=== PATIENT | male | born 1950 | race Caucasian/White ===

== ENCOUNTER 2023-09-11 09:30 | Emergency (ER) | payer MEDICARE, OTHER, SELFPAY ==
[2023-09-11 09:36] VITALS: BP 120/71
--- NOTE | 2023-09-11 10:34 | ED.SKININJ ---
HPI-Injury
<Mya Prather FOOD STAND MANAGER - Last Filed: 09/11/23 18:34>
General
Chief Complaint: Ear Problem
Source: patient and spouse
Exam Limitations: none
Time Seen by Provider: 09/11/23 10:06
Nursing documentation reviewed up to this point in time: agreed with
Travel History
Have you had any contact with someone who has COVID-19?: No
Do you have any symptoms of coronavirus? Fever > 100 degrees, chills, cough, shortness of breath, sore throat, loss of taste or smell, muscle aches, or headache?: No
History of Present Illness-Injury
Initial Injury comments:
72 yo male with muffled hearing and irritation right ear, no pain. Saw [facility] ER 10 days ago and given Ofloxacin 3% ear drops. States he felt improvement for about 5 days but then started with pressure, 'distortion of sound' in the ear.
States pain is gone. Denies fever, sore throat, headache, neck pain.
He is on 3rd month of 6 of Cefuroxime for prophylactic UTI treatment
Past History
<Mya Prather FOOD STAND MANAGER - Last Filed: 09/11/23 18:34>
Past History
ED Past Medical History: Other (macular degeneration); Negative Asthma, HTN, Hypercholesterolemia or NIDDM
ED Past Surgical History: Tonsilectomy (adnoids) and Urological (Tumor removed from right kidney)
Social History
Tobacco: Non-smoker
Alcohol: Occasional
Drug: None
Personal:
Living: with family
Review of Systems
<Mya Prather FOOD STAND MANAGER - Last Filed: 09/11/23 18:34>
Review of Systems
Allergies reviewed?: Yes
All Other Systems: ROS reviewed and negative except as documented in HPI and ROS
Constitutional: Denies fever
EENT: Reports other (right ear muffles sounds and pressure, denies pain)
ABD/GI: Denies nausea
Musculoskeletal: Denies neck pain
Skin: Reports no symptoms
Neurological: Denies dizzy or headache
Phy Exam
<Mya Prather FOOD STAND MANAGER - Last Filed: 09/11/23 18:34>
Physical Exam
Physical Exam:
GENERAL: No acute distress. A&Ox3.
CONSTITUTIONAL: Afebrile.
EYES: clear, conjunctivae normal
Neck: Supple, no lymphadenopathy
ENMT: moist mucus membranes, Pharynx nl, Left ear TM normal. R ear with debris, mild swelling, TM is partially obstructed with debris, not red. No pain with exam.
RESPIRATORY: Regular respirations, nonlabored, lungs clear.
CARDIOVASCULAR: Regular rate and rhythm, no murmurs, no rubs.
MUSCULOSKELETAL: Moves with ease. Well perfused.
SKIN: Warm, dry, pink
PSYCH: Normal mood and affect. Well kept, interactive and appropriate
NEUROLOGIC: Awake, alert and oriented. No focal neurological deficits
Course
<Mya Prather, FOOD STAND MANAGER - Last Filed: 09/11/23 18:34>
Orders/Labs/Results
Orders:
Orders
09/11/23 10:38
Neomycin/Polymyxin/Hc [Cortisporin Otic Suspension] See Dose Instructions OTIC NOW STA
Vital Signs
Initial and Last Documented VS:
Initial Vital Signs
Temp Pulse Resp BP Pulse Ox
98.2 F 83 16 120/71 95
09/11/23 09:36 09/11/23 09:36 09/11/23 09:36 09/11/23 09:36 09/11/23 09:36
Last Documented Vital Signs
Temp Pulse Resp BP Pulse Ox
98.2 F 83 16 120/71 95
09/11/23 09:36 09/11/23 09:36 09/11/23 09:36 09/11/23 09:36 09/11/23 09:36
<Inocente Hernandez, DO - Last Filed: 09/11/23 11:09>
Orders/Labs/Results
Orders:
Orders
09/11/23 10:38
Neomycin/Polymyxin/Hc [Cortisporin Otic Suspension] See Dose Instructions OTIC NOW STA
Vital Signs
Initial and Last Documented VS:
Initial Vital Signs
Temp Pulse Resp BP Pulse Ox
98.2 F 83 16 120/71 95
09/11/23 09:36 09/11/23 09:36 09/11/23 09:36 09/11/23 09:36 09/11/23 09:36
Last Documented Vital Signs
Temp Pulse Resp BP Pulse Ox
98.2 F 83 16 120/71 95
09/11/23 09:36 09/11/23 09:36 09/11/23 09:36 09/11/23 09:36 09/11/23 09:36
<Mya Prather NP - Last Filed: 09/11/23 18:34>
MDM/Problems Addressed
Differential Diagnosis Includes:
otitis externa, otitis media, malignant otitis externa
MDM/Problems Addressed:
72 yo male with muffled hearing and irritation right ear, no pain. Saw [facility] ER 10 days ago and given Ofloxacin 3% ear drops. States he felt improvement for about 5 days but then started with pressure, 'distortion of sound' in the ear.
States pain is gone. Denies fever, sore throat, headache, neck pain.
He is on 3rd month of 6 of Cefuroxime for prophylactic UTI treatment
Afebrile, NAD
Attempted to get Cipro with steroid drops but we only have Neomycin Polymixin with Hydrocortisone drops so these were given to patient, instructed to use TID and continue the Cipro drops once daily
Inserted earwick and first dose of drops
Referred to ENT as needed.
Dr. Hernandez evaluated pt and agrees with assessment and plan
<Mya V. Day, FOOD STAND MANAGER - Last Filed: 09/11/23 18:34>
*Critical Care Note
Total Time (30-74mins, 75-104mins- exclusive of procedures): Not Applicable
ED Attending Note
<Mya Prather, FOOD STAND MANAGER - Last Filed: 09/11/23 18:34>
-
Portions of this chart may have been created with voice recognition software.� Occasional wrong word or��sound alike� substitutions may have occurred due to the inherent limitations of voice recognition software.
<Inocente Hernandez, DO - Last Filed: 09/11/23 11:09>
ED Attending Note
Patient seen and examined by attending physician: Yes
I performed the substantive portion of visit, reviewed & personally made and approve the management plan that is documented in note by myself or JESSICA.: Yes
ED Attending Note:
I have seen and evaluated the patient with a [id number] encounter. I have spoken to the advance practicer provider and involved in the medical history, the physical exam, medical decision making.
Evaluation and management service: agree unless noted differently below.
Results interpretation: agree unless noted differently below.
Focused HPI: 72-year-old male presenting with right ear pain. He is on ofloxacin. Symptoms or not improved
Physical exam: Patient does have evidence of otitis externa. TM clear
Medical Decision Making: Will place ear wick and start on eardrops with steroids. Discussed return precautions
Discharge Plan
Departure
Patient Disposition: Home (Routine Discharge)
Date of Disposition: 09/11/23
Time of Disposition: 10:51
Patient with high blood pressure during this ER visit?: No
Condition: Good
Discharge Problem:
Acute Otitis Externa
Instructions: Outer Ear Infection (DC)
Prescriptions:
No Action
pantoprazole 40 MG tablet,delayed release (DR/EC)
40 mg PO BID
acetaminophen 325 MG tablet
650 mg PO Q6HPRN PRN (Reason: mild pain/ fever>100.5F) 0RF
metronidazole 500 MG tablet
500 mg PO Q8 Qty: 30 0RF
levofloxacin 500 MG tablet
500 mg PO DAILY Qty: 10 0RF
cefuroxime axetil 500 mg tablet
500 mg PO BID Qty: 14 0RF
Referrals:
Rafa Peter MD [Family Provider] -
Jason Simmons MD [Active] - Follow up in 5-7 days
Activity Restrictions/Additional Instructions:
As we discussed, leave this earwick in for 2-3 days, then remove it.
Continue the Ofloxacin drops 4 drops in ear 4 times a day and apply the Neomycin/Polymyxin/Hydrocortisone drops 3 times a day for 10 days.
Tylenol or Ibuprofen as needed for pain.
See the ENT doctor if not significantly improved within 5 days.
Return here immediately for fever above 100.5, increasing pain in the ear/jaw or feeling worse in any way
Interventions
Interventions:
*Risk Screen - Suicide Last Done: 09/11/23 09:36
*General Assessment Last Done: 09/11/23 09:36
*Neglect/Abuse Screening Last Done: 09/11/23 11:09
*Nursing Disposition Last Done: 09/11/23 11:09
Discharge Date and Time
Discharge Date/Time: 09/11/23 11:09
Print Language: ICELANDIC
[2023-09-11] MEDS: CORTISPORIN OTIC SUSPENSION 1 DROP OTIC (11:00)
== END 2023-09-11 11:09 | disposition home or self-care (01) ==
LOC: EMR 09:30
PROVIDERS: EMERGENCY PHYSICIAN Student in an Organized Health Care Education/Training Program; FAMILY PHYSICIAN Internal Medicine
DX: H60.501 Unspecified acute noninfective otitis externa, right ear (principal)
CPT/HCPCS: 99282

== ENCOUNTER 2024-07-23 07:18 | Emergency (ER) | payer MEDICARE, OTHER, SELFPAY ==
[2024-07-23] VITALS (7 sets, daily range): BP systolic 138–153; BP diastolic 71–94; BMI 32.8
[2024-07-23 08:01] LABS: % Basophils 0.4 % (0-2); % Eosinophils 4.9 % (0-6); % Immature Granulocytes 1.4 % (0-0.5); % Lymphocytes 28.8 % (20.5-51.1); % Monocytes 7.3 % (1.7-9.3); % Neutrophils 57.2 % (42.2-75.2); Absolute Eosinophils 0.2 10^3/uL (0-0.7); Absolute Immature Granulocytes 0.1 10^3/uL (0-0.05); Absolute Lymphocytes 1.4 10^3/uL (1.2-3.4); Absolute Monocytes 0.4 10^3/uL (0.1-0.6); Absolute Neutrophils 2.8 10^3/uL (1.4-6.5); Hematocrit 43.6 % (39.0-52.0); Hemoglobin 14.8 g/dL (13.0-18.0); Mean Corp Hgb Conc. 33.9 g/dL (33.0-37.0); Mean Corpuscular Volume 88.4 fL (80.0-94.0); Mean Platelet Volume 9.9 fL (7.4-10.4); Nucleated Red Blood Cells % 0 % (-); Platelet Count 146 10^3/uL (130-400); Red Blood Cell Count 4.93 10^6/uL (4.70-6.10); Red Cell Dist. Width 13.7 % (11.5-14.5); White Blood Cell Count 4.9 10^3/uL (4.8-10.8)
[2024-07-23 08:14] LABS: ALT (SGPT) 24 U/L (0-50); AST (SGOT) 20 U/L (17-59); Albumin 4.1 g/dl (3.5-5.0); Alkaline Phosphatase 48 U/L (38-126); Blood Urea Nitrogen 16 mg/dl (9-20); Calcium 9.4 mg/dl (8.4-10.2); Carbon Dioxide 26 mmol/L (22-30); Chloride 105 mmol/L (98-107); Estimated Creatinine Clearance 88 ml/min; Glucose 126 mg/dl (70-99); Lipase 202 U/L (23-300); Potassium 4.2 mmol/L (3.5-5.1); Sodium 138 mmol/L (135-145); Total Bilirubin 0.5 mg/dl (0.2-1.3); Total Protein 6.8 g/dl (6.3-8.2); eGFR > 60.00
--- NOTE | 2024-07-23 08:14 | ED.GENMED ---
History of Present Illness
<Sheyla Higgins PA-C - Last Filed: 07/24/24 09:31>
General
Chief Complaint: Chest Pain
Source: patient
Exam Limitations: none
Time Seen by Provider: 07/23/24 07:28
Nursing documentation reviewed up to this point in time: agreed with
History of Present Illness
History of Present Illness:
pt is a 73 y/o M
h/o renal cell carcinoma s/p resection R tumor 2021
no chemo/radiation
no CAD history
here with rhtyhmic like chest cramp/ache since 3 pm yesterday
comes every 1-1.5 minutes and lasts briefly before going away
he felt it all day yesterday but then was able to sleep at midnight til 5 am
wok eup to use the bathroom and felt it again
no associated sob, nausea, vomiting, diarphoresis, lightheadedness
it does not feel like extra beat/skipped beat
no pleuritic component
he did travel on a cruise ship recently; flew to [place] first and then on the cruise around [facility]
no h/o DVT/PE
nonsmoker
no hld, htn, dm
Past History
<Sheyla Higgins PA-C - Last Filed: 07/24/24 09:31>
Past History
ED Past Medical History: Other (macular degeneration); Negative Asthma, HTN, Hypercholesterolemia or NIDDM
ED Past Surgical History: Tonsilectomy (adnoids) and Urological (Tumor removed from right kidney)
Social History
Tobacco: Non-smoker
Alcohol: Occasional
Drug: None
Personal:
Living: with family
Review of Systems
<Sheyla Higgins PA-C - Last Filed: 07/24/24 09:31>
Review of Systems
Allergies reviewed?: Yes
All Other Systems: Not applicable
Phy Exam
<Sheyla Higgins PA-C - Last Filed: 07/24/24 09:31>
Physical Exam
Physical Exam:
GENERAL: Alert , in no apparent distress, well appearing
EYE: pupils equal and reactive
NECK: Supple
ENT: o/p clr, mmm.
CARDIAC: Regular rate and rhythm .
LUNGS: Clear breath sounds bilaterally, no acute respiratory distress, no wheezes/rales/rhonchi
chest wall: nontender, no rash
ABDOMEN: Soft, without focal tenderness, no r/g, no cvat, normal bowel sounds
NEUROLOGICAL: Alert and oriented, no focal neuro deficits
SKIN: Warm and dry, skin intact.
MUSCULOSKELETAL: No edema, well perfused. neg thu's sign
PSYCH: Normal and appropriate interaction.
Course
<Sheyla Higgins PA-C - Last Filed: 07/24/24 09:31>
Orders/Labs/Results
Orders:
Orders
07/23/24 07:23
Electrocardiogram (*1) Urgent
Reason for Study: Chest Pain
EKG- Treatment ONCE
07/23/24 07:43
CMP [Comprehensive Metabolic Panel] Urgent
Complete Blood Count/With Diff Urgent
Lipase Urgent
Troponin I Urgent
07/23/24 07:45
DDimer [D-Dimer] Urgent
07/23/24 07:50
Add On- LAB Urgent
Tests Added?: lipase
CR Chest - 2 Views Urgent
Comment:
Reason For Exam: chest pain
07/23/24 08:20
Electrocardiogram (*1) Urgent
Reason for Study: Chest Pain
Other Reason for Exam: sl increase in pain
EKG- Treatment ONCE
07/23/24 08:23
Morphine Sulfate 4 mg .ROUTE .STK-MED ONE
07/23/24 08:28
Morphine Sulfate 4 mg IV NOW STA
07/23/24 08:34
EKG- Treatment ONCE
07/23/24 10:40
Urinalysis Reflex To Culture Urgent
Date Specimen was Collected: 07/23/24
Time Specimen was Collected: 10:40
07/23/24 11:02
Ketorolac [Toradol] 15 mg IV NOW STA
07/23/24 11:16
Troponin I Urgent
07/23/24 11:30
Electrocardiogram (*1) Urgent
Reason for Study: Chest Pain
Abnormal Lab Results
07/23/24
07:43
Abs Immat Gran (auto) 0.1 H 10^3/uL
(0-0.05)
Immature Gran % 1.4 H %
(0-0.5)
Glucose 126 H mg/dl
(70-99)
07/23/24 07:43
07/23/24 07:43
Vital Signs
Initial and Last Documented VS:
Initial Vital Signs
Temp Pulse Resp BP Pulse Ox
36.6 C 90 18 153/94 100
07/23/24 07:20 07/23/24 07:20 07/23/24 07:20 07/23/24 07:20 07/23/24 07:20
Last Documented Vital Signs
Temp Pulse Resp BP Pulse Ox
36.6 C 65 13 138/81 98
07/23/24 07:20 07/23/24 12:30 07/23/24 10:15 07/23/24 12:40 07/23/24 12:40
<Song Powers MD - Last Filed: 07/23/24 08:38>
Orders/Labs/Results
Orders:
Orders
07/23/24 07:23
Electrocardiogram (*1) Urgent
Reason for Study: Chest Pain
EKG- Treatment ONCE
07/23/24 07:43
CMP [Comprehensive Metabolic Panel] Urgent
Complete Blood Count/With Diff Urgent
Lipase Urgent
Troponin I Urgent
07/23/24 07:45
DDimer [D-Dimer] Urgent
07/23/24 07:50
Add On- LAB Urgent
Tests Added?: lipase
CR Chest - 2 Views Urgent
Comment:
Reason For Exam: chest pain
07/23/24 08:20
Electrocardiogram (*1) Urgent
Reason for Study: Chest Pain
Other Reason for Exam: sl increase in pain
EKG- Treatment ONCE
07/23/24 08:23
Morphine Sulfate 4 mg .ROUTE .STK-MED ONE
07/23/24 08:28
Morphine Sulfate 4 mg IV NOW STA
07/23/24 08:34
EKG- Treatment ONCE
07/23/24 10:40
Urinalysis Reflex To Culture Urgent
Date Specimen was Collected: 07/23/24
Time Specimen was Collected: 10:40
07/23/24 11:02
Ketorolac [Toradol] 15 mg IV NOW STA
07/23/24 11:16
Troponin I Urgent
07/23/24 11:30
Electrocardiogram (*1) Urgent
Reason for Study: Chest Pain
Abnormal Lab Results
07/23/24
07:43
Abs Immat Gran (auto) 0.1 H 10^3/uL
(0-0.05)
Immature Gran % 1.4 H %
(0-0.5)
Glucose 126 H mg/dl
(70-99)
07/23/24 07:43
07/23/24 07:43
Vital Signs
Initial and Last Documented VS:
Initial Vital Signs
Temp Pulse Resp BP Pulse Ox
36.6 C 90 18 153/94 100
07/23/24 07:20 07/23/24 07:20 07/23/24 07:20 07/23/24 07:20 07/23/24 07:20
Last Documented Vital Signs
Temp Pulse Resp BP Pulse Ox
36.6 C 65 13 138/81 98
07/23/24 07:20 07/23/24 12:30 07/23/24 10:15 07/23/24 12:40 07/23/24 12:40
<Sheyla Higgins PA-C - Last Filed: 07/24/24 09:31>
MDM/Problems Addressed
Differential Diagnosis Includes:
ACS, PE, msk pain, gerd, nerve pain, early shingles, papitaionts
MDM/Problems Addressed:
73 y/o M
started with L sided chest pain that feels like achy/cramp that comes rhtymically lasting about 5 seconds since yesterday
no sob, pleuritic pain, cough, fever, rash, exertional pain, abdomial pain, nausae/vomiting/diarrhea
symptoms stopped while sleeping, then started again when he woke back up
he looks extremely comfortable
no reproducible tenderness
lungs clear
no PE risk
ekg shows q wave I avL no old
trop x 2 neg
ekg unchagned
had more pain about 1 hour after he was seen and repeated ekg then normal
since toraodl, pain subsidded
cxr indep reviewed, clear by my reading; rads thought maybe overlying soft tissues in the L base, vs early consolidation
pt was called and this was left on his cell phone message so he can follow up if necessary
pt was seen by ed attending who agreed with dispo home
ED Attending Note
<Sheyla Higgins PA-C - Last Filed: 07/24/24 09:31>
-
Portions of this chart may have been created with voice recognition software.� Occasional wrong word or��sound alike� substitutions may have occurred due to the inherent limitations of voice recognition software.
<Song Powers MD - Last Filed: 07/23/24 08:38>
ED Attending Note
Patient seen and examined by attending physician: Yes
I performed the substantive portion of visit, reviewed & personally made and approve the management plan that is documented in note by myself or JESSICA.: Yes
ED Attending Note:
73-year-old male complaining of intermittent very localized episodes of sharp chest pain since yesterday afternoon. Last for seconds occur every few minutes. No pleuritic pain no back pain neck pain or arm pain. No nausea or diaphoresis no
abdominal pain. Will come on out of the blue literally last seconds points to a very localized spot. And in fact he had an episode while I was examining him.
GENERAL: Alert and oriented in no apparent distress
EYE: Orbits normal.
NECK: Supple
CARDIAC: Regular rate and rhythm without any obvious murmurs. No chest wall tenderness
LUNGS: Clear breath sounds,normal
ABDOMEN: Soft, without focal tenderness or distention
NEUROLOGICAL: Alert and oriented , grossly non-focal
SKIN: Warm and dry, no rash or lesion, no discoloration, skin intact.
MUSCULOSKELETAL: No edema,no deformity.Good color
PSYCH: Normal and appropriate interaction.
Impression very atypical chest pain for cardiac etiology or other serious etiology. Last seconds. Nonexertional. No radiation. No shortness of breath. Feels perfectly fine between episodes. In fact had an episode while I was examining him. As
he described that it again lasted a few seconds he appeared normal had no rhythm issues no change in appearance or skin color. Workup in progress.
Discharge Plan
Departure
Patient Disposition: Home (Routine Discharge)
Date of Disposition: 07/23/24
Time of Disposition: 12:06
Patient with high blood pressure during this ER visit?: Yes
Condition: Fair
Covid-19: Not Applicable
Discharge Problem:
Chest pain
Instructions: Chest Pain CBC Follow Up
Prescriptions:
No Action
acetaminophen 325 MG tablet
650 mg PO Q6HPRN PRN (Reason: mild pain/ fever>100.5F) 0RF
cefuroxime axetil 500 mg Tablet
500 mg PO BID
finasteride 5 mg Tablet
5 mg PO DAILY
alfuzosin 10 mg Tablet Extended Release 24 Hr
10 mg PO DAILY
Referrals:
UNKNOWN - PT NOT,INTERVIEWE [Unknown Provider] -
Activity Restrictions/Additional Instructions:
YOUR CHEST PAIN DOESN'T SEEM TO BE CAUSED BY AN EMERGENCY
YOUR TESTING HERE WAS REASSURING
WE DID SEND A MESSAGE TO THE [employer]STRUCTION PRO[employer] MA[employer] OFFICE, THEY WILL CALL YOU TO SCHEDULE AN APPOINTMENT
RETURN FOR WORSENING SYMPTOMS, PASSING OUT, SHORTNESS OF BREATH, OR ANY CONCERNS.
Interventions
Interventions:
*Risk Screen - Suicide Last Done: 07/23/24 07:20
*General Assessment Last Done: 07/23/24 07:20
*Neglect/Abuse Screening Last Done: 07/23/24 07:20
*ED- Fall Risk Assessment Last Done: 07/23/24 07:46
*ED COVID-19 Vaccine History Last Done: 07/23/24 07:46
*Nursing Disposition Last Done: 07/23/24 12:40
ED- Cardiac Assessment Last Done: 07/23/24 07:47
Discharge Date and Time
Discharge Date/Time: 07/23/24 12:41
Print Language: HUNGARIAN
[2024-07-23 08:25] LABS: Troponin I < 0.012 ng/ml
[2024-07-23] MEDS: MORPHINE SULFATE 4 MG IV (08:28)
[2024-07-23 08:47] LABS: D-Dimer < 0.27 ug/mlFEU (0.00-0.50)
[2024-07-23 11:15] LABS: Urine Albumin Negative (Neg - Trace); Urine Bilirubin Negative (Negative); Urine Character Clear (Clear); Urine Color Yellow; Urine Glucose Negative (Negative); Urine Ketone Negative (Negative); Urine Leukocyte Negative (Negative); Urine Nitrite Negative (Negative); Urine Occult Blood Negative (Negative); Urine Specific Gravity 1.005 (<1.030); Urine Urobilinogen Negative (Neg - 1+)
[2024-07-23] MEDS: TORADOL 15 MG IV (11:15)
[2024-07-23 11:57] LABS: Troponin I < 0.012 ng/ml
== END 2024-07-23 12:41 | disposition home or self-care (01) ==
LOC: EMR 07:18
PROVIDERS: Physician Assistant; EMERGENCY PHYSICIAN Emergency Medicine; FAMILY PHYSICIAN Internal Medicine
DX: R07.89 Other chest pain (principal); H35.30 Unspecified macular degeneration; Z85.528 Personal history of other malignant neoplasm of kidney
CPT/HCPCS: 99283; 96374; 96375; 71046; 80053; 81003; 83690; 84484; 85025; 85379; 93005